=== PATIENT | female | born 1975 | race Two or more races ===

== ENCOUNTER 2018-09-10 19:47 | Emergency (ER) | payer OTHER ==
[2018-09-10 19:55] VITALS: BP 139/86; PULSE 107; TEMP 98.3; BMI 27.8
--- NOTE | 2018-09-10 19:56 | PDOC ---
Rapid Medical Evaluation Chief Complaint: Pain, Acute Time Seen by Provider: 09/10/18 19:54 Medical Evaluation: Allergies Allergy/AdvReac Type Severity Reaction Status Date / Time No Known Allergies Allergy Verified 09/10/18 19:53 09/10/18 19:54 I have performed a brief in-person evaluation of this patient. The patient presents with chief complaint of neck pain, reports being seen by pmd had mri done 1 week ago. States pain is worse today preventing her from moving neck. Took unknown pain killer ( "narcotic") at 1pm Pertinent physical exam findings NAD HEENT: + pain with rom of neck even and unlabored breath I have ordered the following analgesia The patient will proceed to the Ed for further evaluation Discharge Disposition - Diagnosis Neck pain - Referrals - Patient Instructions - Post Discharge Activity
[2018-09-10] MEDS ORDERED: KETOROLAC TROMETHAMINE 60 MG/2 ML VIAL IM ONE (20:49)
[2018-09-10] MEDS ORDERED: KETOROLAC TROMETHAMINE 60 MG/2 ML VIAL ONE (20:51)
--- NOTE | 2018-09-10 20:53 | PDOC ---
History of Present Illness - General Chief Complaint: Pain, Acute Stated Complaint: NECK PAIN Time Seen by Provider: 09/10/18 19:54 - History of Present Illness Initial Comments: 09/10/18 20:49 43-year-old female without medical comorbidities. She does states she has a psych history but she is unsure of the diagnosis and unsure the medicine she takes presents for evaluation of 3 days of neck pain. No radicular symptoms loss of bowel or bladder function no systemic symptoms Past History - Past Medical History Allergies/Adverse Reactions: Allergies Allergy/AdvReac Type Severity Reaction Status Date / Time No Known Allergies Allergy Verified 09/10/18 19:53 Home Medications: Ambulatory Orders Baclofen 10 mg PO BID 05/03/17 Diclofenac Sodium [Diclofenac Sodium ER] 100 mg PO DAILY 05/03/17 Oxycodone HCl/Acetaminophen [Percocet 5-325 mg Tablet] 1 tab PO Q6H #15 tablet MDD 4 tabs 05/03/17 traMADol HCL [Ultram] 50 mg PO Q4H 05/03/17 COPD: No Other medical history: back problems - Surgical History Abdominal Surgery: Yes (Abdominoplasty) - Suicide/Smoking/Psychosocial Hx Smoking History: Never smoked Have you smoked in the past 12 months: No Hx Alcohol Use: No Drug/Substance Use Hx: No Substance Use Type: None Review of Systems - Review of Systems Constitutional: No: Fever Musculoskeletal: Yes: Neck Pain Neurological: No: Headache, Tingling, Weakness *Physical Exam - Vital Signs Last Vital Signs Temp Pulse Resp BP Pulse Ox 98.3 F 107 H 18 139/86 99 09/10/18 19:53 09/10/18 19:53 09/10/18 19:53 09/10/18 19:53 09/10/18 19:53 - Physical Exam Comments: 09/10/18 20:50 Cervical spine skin color and temperature are normal. Range of motion is limited. Tenderness about the right and left paracervical musculature with associated spasm. Tenderness about the right levator scapula as well as left levator scapula. 5 out of 5 strength in bilateral upper extremities without gross sensorimotor deficits. She is neurovascularly intact. Moderate Sedation - Procedure Monitoring Vital Signs: Procedure Monitoring Vital Signs Temperature 98.3 F 09/10/18 19:53 Pulse Rate 107 H 09/10/18 19:53 Respiratory Rate 18 09/10/18 19:53 Blood Pressure 139/86 09/10/18 19:53 O2 Sat by Pulse Oximetry (%) 99 09/10/18 19:53 Medical Decision Making - Medical Decision Making 09/10/18 20:53 33-year-old female with cervical strain. She is on an anti-inflammatory and a muscle relaxer. I will give her shot of Toradol in the emergency room this evening she took the muscle relaxer earlier today. Have instructed her to start the anti-inflammatory tomorrow and follow-up with spine *DC/Admit/Observation/Transfer Diagnosis at time of Disposition: Neck pain, Chronic neck pain - Discharge Dispostion Disposition: HOME Condition at time of disposition: Stable Decision to Admit order: No - Referrals Referrals: Quirino Toribio MD [Primary Care Provider] - Murray Woodard MD [Staff Physician] - - Patient Instructions Printed Discharge Instructions: DI for Cervical Muscle Strain Additional Instructions: Continue your regular medication as scheduled. It is a muscle relaxer and anti- inflammatory which will help with your pain. Follow-up with orthopedic spine surgery in 1-2 days for further evaluation and treatment options and return to the emergency room should symptoms worsen or go unresolved. Begin the anti- inflammatoryand muscle relaxer tomorrow do not take any more medication tonight. - Post Discharge Activity
== END 2018-09-10 20:57 | disposition home or self-care (01) ==
LOC: JERFT 19:47
PROC: 3E0233Z Introduction of Anti-inflammatory into Muscle, Percutaneous Approach (ICD-10-PCS; principal; 2018-09-10)
DX: S16.1XXA Strain of muscle, fascia and tendon at neck level, initial encounter (principal); M62.838 Other muscle spasm; X58.XXXA Exposure to other specified factors, initial encounter; Y93.89 Activity, other specified; Y92.89 Other specified places as the place of occurrence of the external cause; Y99.8 Other external cause status
CPT/HCPCS: 96372; 99281-25

== ENCOUNTER 2021-01-13 18:33 | Emergency (ER) | payer OTHER ==
[2021-01-13 19:01] VITALS: BP 130/87; PULSE 92; TEMP 98.4; BMI 26.7
[2021-01-13] MEDS ORDERED: DIPHTH,PERTUSS(ACELL),TET 0.5 ML DISP.SYRIN IM ONE ×2 (19:19→19:28)
== END 2021-01-13 20:02 | disposition home or self-care (01) ==
LOC: JERFT 18:33
PROC: 3E0234Z Introduction of Serum, Toxoid and Vaccine into Muscle, Percutaneous Approach (ICD-10-PCS; principal; 2021-01-13)
DX: S61.210A Laceration without foreign body of right index finger without damage to nail, initial encounter (principal)
CPT/HCPCS: 90471; 90715; 99284-25

== ENCOUNTER 2022-11-10 21:53 | Emergency (ER) | payer OTHER ==
[2022-11-10 22:00] VITALS: BP 160/85; PULSE 98; RESP 18; TEMP 98.1; BMI 26.7
== END 2022-11-10 23:36 | disposition home or self-care (01) ==
LOC: JER 21:53 → JERFT 21:53 → JER 23:36
DX: J06.9 Acute upper respiratory infection, unspecified (principal); R05.1 Acute cough; R09.81 Nasal congestion; Z20.822 Contact with and (suspected) exposure to COVID-19
CPT/HCPCS: 0241U-QW; 99283-25

== ENCOUNTER 2023-10-27 10:03 | Emergency (ER) | payer OTHER ==
[2023-10-27 10:14] VITALS: BP 126/80; PULSE 110; RESP 18; TEMP 98.1; BMI 26.7
[2023-10-27] MEDS ORDERED: ACETAMINOPHEN INJECTION 100 ML IVPB ONE (10:33)
[2023-10-27] MEDS ORDERED: ONDANSETRON 4 MG/2 ML VIAL ONE (10:33)
[2023-10-27] MEDS: SODIUM CHLORIDE 0.9% 500 ML INFUS.BAG IV ONE (10:45)
[2023-10-27] MEDS: ONDANSETRON 4 MG/2 ML VIAL IVPUSH ONE (10:45)
[2023-10-27] MEDS: ACETAMINOPHEN 1000 MG/100 ML BAG IVPB ONE (10:45)
[2023-10-27 11:05] LABS: BASO % 0.3 % (0-2.0); HEMATOCRIT 37.3 % (32.4-45.2); HEMOGLOBIN 12.2 GM/dL (10.7-15.3); LYMPH % 6.8 % (8-40); MCH 26.5 pg (25.7-33.7); MCHC 32.8 g/dl (32.0-36.0); MEAN CELL VOLUME 80.8 fl (80-96); MEAN PLT VOLUME 7.9 fl (7.5-11.1); MONO % 2.4 % (3.8-10.2); NEUT % 90.5 % (42.8-82.8); PLATELET COUNT 422 10^3/uL (134-434); RBC 4.61 M/mm3 (3.60-5.2); RDW 15.1 % (11.6-15.6); WHITE BLOOD COUNT 8.8 K/mm3 (4.0-10.0)
[2023-10-27 11:27] LABS: POTASSIUM 3.9 mmol/L (3.5-5.1)
[2023-10-27 11:29] LABS: CALCIUM 9.8 mg/dL (8.5-10.1)
[2023-10-27 11:30] LABS: ALBUMIN 4.1 g/dl (3.4-5.0); BLOOD UREA NITROGEN 13.9 mg/dL (7-18)
[2023-10-27 11:33] LABS: CREATININE 0.8 mg/dL (0.55-1.3)
[2023-10-27 11:35] LABS: TOT PROT 8.1 g/dl (6.4-8.2)
[2023-10-27 11:38] LABS: BILIRUBIN,TOTAL 0.5 mg/dL (0.2-1)
[2023-10-27] MEDS: KETOROLAC TROMETHAMINE 30 MG/1 ML VIAL IVPUSH ONE (12:15)
[2023-10-27] MEDS ORDERED: KETOROLAC TROMETHAMINE 30 MG/1 ML VIAL ONE (12:17)
== END 2023-10-27 13:00 | disposition home or self-care (01) ==
LOC: JER 10:03
PROC: 3E033NZ Introduction of Analgesics, Hypnotics, Sedatives into Peripheral Vein, Percutaneous Approach (ICD-10-PCS; principal; 2023-10-27)
PROC: 3E0333Z Introduction of Anti-inflammatory into Peripheral Vein, Percutaneous Approach (ICD-10-PCS; 2023-10-27)
PROC: 3E033GC Introduction of Other Therapeutic Substance into Peripheral Vein, Percutaneous Approach (ICD-10-PCS; 2023-10-27)
DX: G43.909 Migraine, unspecified, not intractable, without status migrainosus (principal); R11.0 Nausea; R53.83 Other fatigue
CPT/HCPCS: 36415; 80053; 83690; 84703; 85025; 93005; 93010; 96374; 96375; 99284-25; J0131